=== PATIENT | male | born 1935 | race Caucasian/White ===

== ENCOUNTER 2016-11-29 10:11 | Inpatient (IN) | payer OTHER ==
[~2016-11-29] VITALS: Ht 182.9 cm; Wt 74.8 kg
[~2016-11-29 10:11] MED LIST: ALLOPURINOL100 PO; AMLODIPINE5 MG PO; ARTOS OU; COL100 PO; ECO81 PO; ENALAPRIL5 MG PO; ERYOO OU; FERROUS SULFAT325 M2 PO; GEMFIBROZIL PO; HYD500 PO; IPRATROPIUM BROM3 M2 HHN; LAC PO; LOP600 PO; METFORMIN HCL500 MG PO; METOPROLOL25 MG PO; NOR5 PO; PULMICORT0.5 MG/2 M IH; ROC1I IM; ROC1I IV; SER25 PO; V5 PO; VITAMIN C500 M4 PO; ZOC10 PO; ZOFI IV; ZYL100 PO
[2016-11-29 11:20] VITALS: BP 106/73
[2016-11-29 11:21] LABS: CARBON DIOXIDE 16.5 mmol/L (21-32); CHLORIDE SERUM 111 mmol/L (98-107); CREATININE SERUM 2.1 mg/dL (0.7-1.3); GLUCOSE SERUM 240 mg/dL (74-106); POTASSIUM SERUM 4.7 mmol/L (3.5-5.1); SODIUM SERUM 142 mmol/L (136-145)
[2016-11-29 11:26] LABS: ALKALINE PHOSPHATASE 101 U/L (46-116); ALT/SGPT 75 U/L (16-63); AST/SGOT 75 U/L (15-37); BILIRUBIN TOTAL 0.5 mg/dL (0.20-1.00)
[2016-11-29 11:29] LABS: ALBUMIN 2.8 g/dL (3.4-5.0); TOTAL PROTEIN, SERUM 5.7 g/dL (6.4-8.2)
[2016-11-29 13:15] LABS: ATYPICAL LYMPH 3 %; BAND NEUTROPHIL 6 % (0-10); BASOPHIL 0 % (0-2); MONOCYTE 6 % (0-7); MYELOCYTE 1 % (0-2); SEGMENTED NEUTROPHILS 79 % (37-75)
[2016-11-29 13:22] LABS: PLATELET MORPHOLOGY PLATELETS INCREASED; rbc morphology (normal/abnorm) ABNORMAL (NORMAL)
[2016-11-29 13:25] LABS: microscopic required? YES; urine erythrocyte 1+ (NEGATIVE)
[2016-11-29 14:04] LABS: PATH REVIEW for HEMA YES
[2016-11-29 14:38] LABS: PLATELET COUNT 747 x10^3mcL (130-400)
[2016-11-29 15:38] VITALS: BP 86/62
[2016-11-29 15:55] VITALS: BP 97/76
[2016-11-29 17:50] VITALS: BP 85/60
== END 2016-11-29 21:51 | disposition expired | DRG 871 ==
LOC: ED 10:11 → IC 12:52
PROVIDERS: Emergency Medicine; ADMIT Family Medicine
PROC: 0BH17EZ Insertion of Endotracheal Airway into Trachea, Via Natural or Artificial Opening (ICD-10-PCS; principal; 2016-11-29)
PROC: 5A1935Z Respiratory Ventilation, Less than 24 Consecutive Hours (ICD-10-PCS; 2016-11-29)
DX: A41.9 Sepsis, unspecified organism (principal); J96.01 Acute respiratory failure with hypoxia; R65.21 Severe sepsis with septic shock; J69.0 Pneumonitis due to inhalation of food and vomit; I21.4 Non-ST elevation (NSTEMI) myocardial infarction; N17.0 Acute kidney failure with tubular necrosis; E43 Unspecified severe protein-calorie malnutrition; C34.90 Malignant neoplasm of unspecified part of unspecified bronchus or lung; C77.9 Secondary and unspecified malignant neoplasm of lymph node, unspecified; E87.2 Acidosis; Z66 Do not resuscitate
CPT/HCPCS: 36600; 83880; 85060; A4628; G0480; J0330; J0456; J0696; J2060; J2270; J2543; J2704; J3490; J7030; Q0092